=== PATIENT | female | born 2000 | race Caucasian/White ===

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

== ENCOUNTER 2022-04-05 08:29 | Emergency (ER) | payer OTHER ==
[2022-04-05 08:35] VITALS: BP 109/73; PULSE 95; RESP 18; TEMP 98
--- NOTE | 2022-04-05 10:03 | ED ---
Skin/Abscess/FB HPI - General Chief complaint: Skin/Abscess/Foreign Body Stated complaint: Toe infection Time Seen by Provider: 04/05/22 09:08 Source: patient, RN notes reviewed Mode of arrival: ambulatory Limitations: no limitations - History of Present Illness Initial comments: Patient is a pleasant 21-year-old female presents to the emergency room with complaints of pain, swelling and abscess to the cuticle aspect of her left big toe which began 3 days ago. She states the pain has improved however the fluid collection at the cuticle aspect and redness seems to be worsening. She was concerned regarding popping or evacuating the abscessed region. She denies any generalized malaise, weakness, altered mental status, fevers or chills. She also notes that she missed her menstrual cycle and is approximately 4 days late. She doubts that she is however there is a chance. She has past medical history significant for type 1 diabetes which she reports is well controlled. - Related Data Home Medications Medication Instructions Recorded Confirmed INSULIN LISPRO (For Pump) [humaLOG 0.01 units SQ-PUMP CONTINUOUS 04/05/22 04/05/22 (For Pump)] Previous Rx's Medication Instructions Recorded Sulfamethox-Tmp 800-160Mg [Bactrim 1 tab PO Q12HR 7 Days #14 tab 04/05/22 DS 800-160 mg] Allergies Allergy/AdvReac Type Severity Reaction Status Date / Time amoxicillin Allergy Rash/Hives Verified 04/05/22 11:09 Review of Systems ROS Statement: Those systems with pertinent positive or pertinent negative responses have been documented in the HPI. ROS Other: All systems not noted in ROS Statement are negative. Past Medical History Past Medical History: Diabetes Mellitus History of Any Multi-Drug Resistant Organisms: None Reported Past Surgical History: No Surgical Hx Reported Past Psychological History: Anxiety, Depression, PTSD Smoking Status: Vaper Past Alcohol Use History: None Reported Past Drug Use History: None Reported General Exam General appearance: alert, in no apparent distress Head exam: Present: atraumatic, normocephalic, normal inspection Eye exam: Present: normal appearance, PERRL, EOMI. Absent: scleral icterus, conjunctival injection, periorbital swelling ENT exam: Present: normal exam, mucous membranes moist Neck exam: Present: normal inspection, full ROM Respiratory exam: Absent: respiratory distress, accessory muscle use Cardiovascular Exam: Present: regular rate Left Foot/Toe exam: Present: swelling (left great toe primarly to the nail base and cuticle bed), erythema (Cuticle bed) Neurovascular tendon exam: Absent: no vascular compromise Gait: observed and normal Back exam: Present: normal inspection Neurological exam: Present: alert, oriented X3, CN II-XII intact Psychiatric exam: Present: normal affect, normal mood Skin exam: Present: other (Erythremia with large purulent pocket to cuticle base status pilus expression of drainage ulcer obtained.) Course Vital Signs 04/05/22 08:31 Temperature 98.0 F Pulse Rate 95 Respiratory 18 Rate Blood Pressure 109/73 O2 Sat by Pulse 97 Oximetry Medical Decision Making - Medical Decision Making 21-year-old female presenting to the emergency room with abscess to great toe at the cuticle aspect. On exam able to express focal contents of abscess pocket which is purulent in nature without foul odor. Culture obtained. Patient also concerned regarding will check urine for . Urine for negative. Due to to amoxicillin allergy will give Bactrim to treat abscess. Encouraged continued expression of drainage from pocket. Encouraged follow-up with her primary care provider in continued good glycemic control. Will discharge home. Case discussed with Dr. Mercado. - Lab Data Lab Results 04/05/22 Range/Units 10:09 Urine HCG, Qual Not Detected (Not Detectd) Disposition Clinical Impression: Abscess around great toenail Disposition: HOME SELF-CARE Condition: Stable Instructions (If sedation given, give patient instructions): Abscess (ED) Additional Instructions: Please keep wound clean and dry. Continue to allow drainage of fluid if reaccumulation occurs. Complete antibiotic course as prescribed. Please follow- up with your primary care provider.Please return to the Emergency Department if symptoms worsen or any other concerns. Prescriptions: Sulfamethox-Tmp 800-160Mg [Bactrim DS 800-160 mg] 1 tab PO Q12HR 7 Days #14 tab Is patient prescribed a controlled substance at d/c from ED?: No Referrals: Nonstaff,Physician [Primary Care Provider] - 1-2 days Time of Disposition: 11:35
== END 2022-04-05 11:46 | disposition home or self-care (01) ==
LOC: EC 08:29
DX: L02.612 Cutaneous abscess of left foot (principal); E11.9 Type 2 diabetes mellitus without complications; F17.290 Nicotine dependence, other tobacco product, uncomplicated; Z88.0 Allergy status to penicillin
CPT/HCPCS: 81025; 99283